=== PATIENT | male | born 1950 | race Caucasian/White ===

== ENCOUNTER → 2019-06-17 | Outpatient (CLI) | payer MEDICARE, OTHER ==
[~2019-06-17] MED LIST: IBUP-56 PO; MULT1CAP41 PO; NIAC100040 PO; RANI-54 PO; TADA5TAB7 PO
[2019-06-17 14:56] LABS: PLATELET COUNT, AUTOMATED 234 K/uL (150-450)
--- NOTE | 2019-06-18 10:10 | EKG ---
FACILITY: [facility] PATIENT NAME: ISADORA STEVENS : [id number] MR: [id number] V: [id number] EXAM DATE: ORDERING PHYSICIAN: BOBBY VEGA TECHNOLOGIST: LI Test Reason : PRE-OP Blood Pressure : / mmHG Vent. Rate : 076 BPM Atrial Rate : 076 BPM P-R Int : 144 ms QRS Dur : 084 ms QT Int : 390 ms P-R-T Axes : 042 058 068 degrees QTc Int : 438 ms Normal sinus rhythm Normal ECG No previous ECGs available Referred By: Confirmed By:
== END ==
LOC: LAB 14:22
PROVIDERS: ATTEND Internal Medicine
DX: Z01.812 Encounter for preprocedural laboratory examination (principal); Z01.810 Encounter for preprocedural cardiovascular examination
CPT/HCPCS: 36415; 81001; 82040; 82247; 82310; 82374; 82435; 82565; 82947; 84075; 84132; 84155; 84295; 84443; 84450; 84460; 84520; 85025

== ENCOUNTER 2019-07-08 00:26 | Inpatient (IN) | payer MEDICARE, OTHER ==
--- NOTE | 2019-06-28 08:26 | LEVENE H&P ---
DATE OF ADMISSION: July 01, 2019 IDENTIFICATION/CHIEF COMPLAINT Ambrosio is a 69-year-old gentleman with chief complaint of right knee pain and dysfunction. HISTORY OF PRESENT ILLNESS Patient has a longstanding history of problems with his knee dating back to an old ACL injury and surgery. He has had meniscectomies and reconstruction. Over time, he has found it more and more difficult to hike. He has severe pain at times and limited walking function. Surgery is indicated to relieve pain and improve function after failure of nonoperative measures. PAST MEDICAL HISTORY Acid reflux disease. CURRENT MEDICATIONS * Ranitidine 150 mg p.o. q.d. * Ibuprofen as needed. ALLERGIES No known drug allergies. PAST SURGICAL HISTORY * Lumbar diskectomy. * ACL reconstruction. * Meniscectomy. FAMILY HISTORY Notable for mother with Alzheimer's and father with colon cancer. SOCIAL HISTORY Negative for tobacco use. He drinks alcohol socially, about three drinks per month. Denies abuse. REVIEW OF SYSTEMS Otherwise unremarkable. PHYSICAL EXAMINATION GENERAL: This is a fit, healthy gentleman who appears stated age. HEENT: Normocephalic, atraumatic. NECK: Supple. LUNGS: Clear. HEART: Regular. ABDOMEN: Soft. ORTHOPEDIC EXAMINATION The right knee is thickened. His old surgical scars are well-healed. He is very stiff. His extensor function is intact. Gross stability is good. Calves are nontender. Neurovascular function is intact. Radiographs demonstrate end- stage degenerative joint disease. ASSESSMENT Right knee end-stage posttraumatic arthritis, progressively painful and disabling and refractory to conservative care. PLAN Ambrosio and I reviewed the options today including ongoing conservative care, which is safe and reasonable but with little likelihood of improvement, versus the option of surgical treatment. Surgery will consist of total knee arthroplasty. The nature of the procedure, the risks, benefits, the anticipated rehabilitative course were outlined and all of his questions were answered. The risks of the procedure were included but not limited to , major medical or anesthetic complication, infection, neurovascular injury, blood transfusion, stiffness, scarring, fracture, tendon rupture, instability, implant loosening, migration or failure, persistent or recurrent pain, need for additional surgery and other unforeseen. He understands and wishes to proceed. A signed permit is placed in the chart. No guarantees are given or implied. SADIE
[2019-07-07 14:20] LABS: INR 1.01
[~2019-07-08] VITALS: Ht 182.9 cm; Wt 86.2 kg
[2019-07-08] VITALS (16 sets, daily range): BP systolic 109–154; BP diastolic 52–96
[2019-07-08] MEDS ORDERED: CELECOXIB 200 MG CAP PO ONE (07:45)
[2019-07-08] MEDS ORDERED: ACETAMINOPHEN 500 MG TAB PO ONE (07:45)
[2019-07-08] MEDS ORDERED: TRANEXAMIC AC 1000 MG/10ML SDV 1,000 MG in DEXTROSE 5% 50 ML BAG 50 ML IV ONE (07:45)
[2019-07-08] MEDS ORDERED: NORMOSOL R SOLN(*) 1000 ML BAG 1,000 ML IV PRN ×2 (07:45→13:00)
[2019-07-08] MEDS ORDERED: MIDAZOLAM 2 MG/2 ML VIAL IVP PRN (07:45)
[2019-07-08] MEDS ORDERED: ceFAZolin(*) 2GM/D5W 50ML 50 ML IVPB ONE (07:45)
[2019-07-08] MEDS ORDERED: PREGABALIN 150 MG CAPSULE PO ONE (07:45)
[2019-07-08] MEDS ORDERED: LIDOCAINE/SOD BICARB 8.4% SYR ID ONE (07:45)
[2019-07-08] MEDS ORDERED: ROPIVACAINE/EPI/CLONIDINE/KET 50 ML SYRINGE INJ ONE (07:45)
[2019-07-08] MEDS ORDERED: ONDANSETRON 4 MG/2 ML VIAL ONE (07:57)
[2019-07-08] MEDS ORDERED: DEXAMETHASONE SOD 4 MG/ML VIAL ONE (07:57)
[2019-07-08] MEDS ORDERED: fentaNYL CITR 100 MCG/2 ML AMP ONE (07:57)
[2019-07-08] MEDS ORDERED: PROPOFOL EMUL(*) 10MG/ML 20 ML 20 ML ONE (07:57)
[2019-07-08] MEDS ORDERED: LIDOCAINE MPF 1% 5 ML VIAL ONE (07:57)
[2019-07-08] MEDS ORDERED: KETAMINE HCL-NS 50 MG/5 ML SYR ONE (07:58)
[2019-07-08] MEDS ORDERED: VANCOMYCIN 1 GM VIAL ONE (09:59)
[2019-07-08] MEDS ORDERED: NS 0.9% 3000 ML IRRIGATION BAG IR ONE (11:44)
[2019-07-08] MEDS ORDERED: BISACODYL 10 MG SUPP PR PRN (13:00)
[2019-07-08] MEDS ORDERED: MAGNESIUM HYDROXIDE* 30ML UDCP PO PRN (13:00)
[2019-07-08] MEDS ORDERED: ZOLPIDEM TARTRATE 5 MG TAB PO PRN (13:00)
[2019-07-08] MEDS ORDERED: DIAZEPAM 5 MG TAB PO PRN (13:00)
[2019-07-08] MEDS ORDERED: ACETAMINOPHEN 325 MG TAB PO PRN (13:00)
[2019-07-08] MEDS ORDERED: BENZOCAINE/MENTHOL 1 EACH LOZG PO PRN (13:00)
[2019-07-08] MEDS ORDERED: diphenhydrAMINE 25 MG CAP PO PRN (13:00)
[2019-07-08] MEDS ORDERED: diphenhydrAMINE 50 MG/ML VIAL IVP PRN (13:00)
[2019-07-08] MEDS ORDERED: FLUSH 10 ML SYR IVP PRN (13:00)
[2019-07-08] MEDS ORDERED: PROMETHAZINE 25 MG/ML 1 ML AMP IVP PRN (13:00)
--- NOTE | 2019-07-08 13:23 | OPERATIVE REPORT 1 ---
EVENT DATE: July 08, 2019 SURGEON: Lamin West MD ANESTHESIOLOGIST: Pravin Tovar MD ANESTHESIA: General plus spinal. PRODUCT GRADER: MONA Justin PREOPERATIVE DIAGNOSIS 1. Right knee degenerative joint disease. 2. Retained deep hardware. 3. Suprapatellar soft tissue cyst. POSTOPERATIVE DIAGNOSIS 1. Right knee degenerative joint disease. 2. Retained deep hardware. 3. Suprapatellar soft tissue cyst. PROCEDURE PERFORMED 1. Excision of deep cyst in the suprapatellar region. 2. Total knee arthroplasty. 3. Removal of deep hardware. ESTIMATED BLOOD LOSS Minimal. DRAINS None. SPECIMENS None. COMPLICATIONS None apparent. TOURNIQUET TIME 84 minutes. IMPLANTS USED Good Photo knee system. A 7 right PS femur, 8 standard tibial baseplate, 39 mm universal symmetric all polyethylene patellar button and a 9 mm PS tibial tray liner, polyethylene x3. INDICATIONS Vince has progressive pain and disability related to end-stage post traumatic arthritis and status post prior ACL reconstruction with also retained hardware and troublesome superolateral cyst. Surgery is indicated to relieve these problems after failure of nonoperative measures. DESCRIPTION OF PROCEDURE The patient was taken to the operating room and placed supine on the operating table. Spinal block was placed by the anesthesiologist. General anesthesia was induced. Standard antibiotics and TXA were administered IV. The right lower extremity was prepped and draped in the usual sterile fashion for knee arthroplasty. The limb was exsanguinated with an Esmarch bandage. The tourniquet was inflated to 275 mmHg. The old scar which was a midline scar, was recreated and then extended proximally for a midline incision. This was carried down through the skin and scar tissue to the extensor mechanism. Full-thickness flaps were developed far enough medially to allow medial parapatellar arthrotomy to be performed. The patella was everted. The knee was brought into flexed position. Subperiosteal capsule released performed circumferential 1 cm around the upper plateau to start to balance the knee. Step drill was used to enter the distal femur. A 10-inch long alignment guide was used to engage the isthmus. Cut was set for 5 degrees valgus relative to the anatomic axis. A 10 mm resection block was applied and pinned. Cuts made with an oscillating saw. The AP sizing guide was applied. The distal femoral cut and positioned for 3 degrees of external rotation relative to the posterior condyles of the femur. A size 7 is optimal without risk of notching. The four-in-one cutting block was applied. Anterior, posterior, posterior chamfer and anterior chamfer cuts were made respectively. A PS block was applied and centered medial and lateral. Bone was removed from the box. In the process of removing the bone from the box the retained femoral interference screw was encountered and this was removed with a large flat screwdriver. Surrounding bone is cleaned up. The trial femur has nice [id number] fit. Attention is turned to the tibial preparation. The extramedullary guide was applied and positioned for varus, valgus, posterior slope and rotation. This was set to resect 2 mm from the deficient lateral tibial plateau. The block was pinned. Extramedullary alignment check was made and the cut was made with an oscillating saw. At this point, the extensive work is performed to remove all of the osteophytes and bone packed densely into the posterior recess. The Hartley's cyst was also noted to spontaneously decompress yielding a lot of serous fluid through the medial aspect of the posterior capsule. The size 8 baseplate provides optimal bony coverage without soft tissue overhand. This was inserted along with the trial femur. The knee was brought into extension. the patella was taken from a starting thickness of 27 mm to a residual of 15 with a patellar clamp and an oscillating saw. The 39 provides optimal bony coverage without soft tissue overhang. Lug holes were drilled. The patella tracks nicely with a no-touch technique. Final tibial preparation consisted of ensuring appropriate rotational and translational position of the component. The box was reamed and the fin was punched. The interference screw in the tibia was encountered but deflected and does not require dissection and removal. Sclerotic bone medially is perforated with a small drill bit to facilitate cement interdigitation. A mix of methylmethacrylate was made and the components were cemented in a single stage. Once the cement was fully polymerized, the tourniquet was deflated and hemostasis was assured. The wounds were copiously lavaged. The 9 filles up the gap ideally allowing the knee to drop to full extension without hyperextension, providing optimal soft tissue tension and stability. The actual liner was locked into the baseplate. Joint was reduced. The arthrotomy was closed in flexion with #2 Ethibond, subcutaneous tissue with 3-0 Vicryl and the skin with a ZipLine closure. Xeroform was applied followed by a dry, sterile dressing and a compression wrap. The patient was awakened from the anesthesia and taken to the recovery room in stable condition, having tolerated the procedure well. Plan is for standard TKA rehab protocol. SADIE
--- NOTE | 2019-07-08 14:31 | RADIOLOGY IMAGING REPORT ---
FACILITY: [facility] PATIENT NAME: Ambrosio Russell : 1950 MR: [id number] V: [id number] EXAM DATE: ORDERING PHYSICIAN: RADHA KIRKLAND TECHNOLOGIST: Location: [facility] Patient: Ambrosio Russell : 1950 Visit/Account:[id number] Date of Sevice: 07/08/2019 KNEE LIMITED RIGHT HISTORY: Status post total knee arthroplasty. Check placement. COMPARISON: None. TECHNIQUE: AP and crosstable lateral views of the right knee. FINDINGS: There is a right total knee arthroplasty. A screw traverses the anterior proximal tibial me taphysis. There are skin richard and gas within the soft tissues. IMPRESSION: 1. Expected postoperative changes of right knee arthroplasty. Report Dictated By: Kina Gray at 07/08/2019 2:21 PM Report E-Signed By: Kina Gray at 07/08/2019 2:22 PM WSN:[id number]
--- NOTE | 2019-07-08 15:15 | NUR ---
Physical Therapy Impression PT eval complete. Pt reports decreased sensation in bilateral LEs at time of eval. SBA for bed mobility. CGA to stand at EOB with RW. Pt not able to control LEs in order to side step at EOB, d/t effects of spinal. PT instruction for supine LE ther-ex once pt was back in supine. CPM fit and placed running with pt instruction in flexion self progression. Pt plans to d/c home tomorrow, 07/09/19. Physical Therapy Goals 1: Pt to complete bed mobility with Christine 2: pt to complete transfers with Christine and appropriate AD 3: Pt to ambulate 150' with Christine and appropriate AD 4: pt to asc/desc 2 stairs with railing and SBA 5: Pt to be I) with use of CPM Patient's Goals
[2019-07-08] MEDS ORDERED: CELECOXIB 200 MG CAP PO SCH (17:00)
--- NOTE | 2019-07-08 17:38 | Hospitalist Progress Note ---
Subjective Progress Notes Subjective No cp/sob. About 2000cc of crystalloid, TXA, dexamethasone given intra-op. Physical Exam Vital Signs Date Time Temp Pulse Resp B/P (MAP) Pulse Ox O2 Delivery O2 Flow Rate FiO2 07/08/19 15:45 73 136/84 (101) 92 07/08/19 15:03 Room Air 07/08/19 14:53 97.7 14 1.0 General Appearance: Alert, Awake, No Acute Distress Cardiovascular: Regular Rate and Rhythm Respiratory: Clear to Auscultation Extremities: No Edema Assessment and Plan Problems: (1) Status post knee replacement Status: Acute Assessment & Plan: No CV or pulmonary issues. He denies a h/o DVT/PE. He will be on ASA 325mg a day for 30 days for blood clot prevention. (2) GERD (gastroesophageal reflux disease) Status: Chronic Assessment & Plan: Continue chronic Zantac. Exam Sepsis Risk: No Definite Risk Problem Qualifiers (1) Status post knee replacement: Laterality: right Qualified Codes: Z96.651 - Presence of right artificial knee joint EMMA KIMBLE MD Jul 08, 2019 17:37
[2019-07-08] MEDS: WATER STERILE IVP SCH (17:51)
[2019-07-08] MEDS: CEFAZOLIN IVP SCH (17:51)
[2019-07-08] MEDS: APAP/HYDROCODONE 325/7.5 TAB PO PRN (22:44)
[2019-07-09] MEDS: WATER STERILE IVP SCH ×2 (00:48→09:51)
[2019-07-09] MEDS: CEFAZOLIN IVP SCH ×2 (00:48→09:51)
[2019-07-09 03:35] VITALS: BP 124/68
[2019-07-09] MEDS: APAP/HYDROCODONE 325/7.5 TAB PO PRN ×2 (04:07→08:11)
[2019-07-09 07:02] VITALS: BP 113/67
[2019-07-09] MEDS ORDERED: RANITIDINE HCL 150 MG TAB PO SCH (09:00)
[2019-07-09] MEDS ORDERED: ASPIRIN 325 MG TAB PO SCH (09:00)
[2019-07-09] MEDS ORDERED: ASPI-757 PO (09:19)
--- NOTE | 2019-07-09 10:51 | Hospitalist Progress Note ---
Subjective Progress Notes Subjective He was admitted s/p knee replacement. He has no complaints this morning. He had no acute events overnight. Patient Complains of: Cardiovascular: No: Chest Pain Respiratory: No: Shortness of Breath Physical Exam Vital Signs Date Time Temp Pulse Resp B/P (MAP) Pulse Ox O2 Delivery O2 Flow Rate FiO2 07/09/19 07:02 98.3 65 113/67 (82) 99 Room Air 07/09/19 03:35 14 1.0 Intake and Output 07/09/19 01:04 Intake Total 2160 ml Balance 2160 ml Intake Oral 300 ml IV Total 1860 ml # Voids 2 General Appearance: Alert, Awake, No Acute Distress, Afebrile Neuro: No Gross deficits Cardiovascular: Regular Rate and Rhythm Respiratory: No Respiratory Distress, Clear to Auscultation GI: Soft and Non-Tender Psych: Alert & Oriented X3, Appropriate Mood & Affect Assessment and Plan Problems: (1) Status post knee replacement Status: Acute Assessment & Plan: No CV or pulmonary issues. He denies a h/o DVT/PE. He will be on ASA 325mg a day for 30 days for blood clot prevention. (2) GERD (gastroesophageal reflux disease) Status: Chronic Assessment & Plan: Continue chronic Zantac. Exam Sepsis Risk: No Definite Risk Problem Qualifiers (1) Status post knee replacement: Laterality: right Qualified Codes: Z96.651 - Presence of right artificial knee joint SHADI SOLIS FAMILY ASSISTANT Jul 09, 2019 10:51
[2019-07-09 12:35] VITALS: Ht 182.9 cm; Wt 86.2 kg
--- NOTE | 2019-07-09 15:08 | NUR ---
Physical Therapy Impression Pt safe for DC when medically appropriate. Physical Therapy Goals 1: Pt to complete bed mobility with Christine 2: pt to complete transfers with Christine and appropriate AD 3: Pt to ambulate 150' with Christine and appropriate AD 4: pt to asc/desc 2 stairs with railing and SBA 5: Pt to be I) with use of CPM Patient's Goals
== END 2019-07-09 11:45 | disposition home or self-care (01) | DRG 470 ==
LOC: OR 00:26 → MED 14:45
PROVIDERS: ADMIT Orthopaedic Surgery; ATTEND Orthopaedic Surgery
PROC: 0SPC04Z Removal of Internal Fixation Device from Right Knee Joint, Open Approach (ICD-10-PCS; 2019-07-08)
PROC: 0SRC0J9 Replacement of Right Knee Joint with Synthetic Substitute, Cemented, Open Approach (ICD-10-PCS; principal; 2019-07-08 09:58)
DX: M17.31 Unilateral post-traumatic osteoarthritis, right knee (principal); K21.9 Gastro-esophageal reflux disease without esophagitis; M71.21 Synovial cyst of popliteal space [Baker], right knee; Z79.899 Other long term (current) drug therapy
CPT/HCPCS: 36415; 85610; 86850; 86900; 86901; 97161; A4216; J0690; J1100; J2001; J2250; J2405; J2550; J2704; J3010; J3370; J3490; J7060